=== PATIENT | female | born 1990 | race Caucasian/White ===

== ENCOUNTER → 2023-07-28 10:50 | Outpatient (REF) | payer OTHER, SELFPAY ==
[2023-07-28 15:52] LABS: Mumps Virus IgG Positive; Rubeola (Measles) IgG Positive; Varicella Zoster IgG (VZV) Positive
[2023-07-28 19:20] LABS: Hepatitis B Surface Antibody Negative
[2023-07-28 19:58] LABS: Rubella Positive
[2023-07-30 11:53] LABS: Quantiferon Mitogen minus NIL 8.86 IU/mL; Quantiferon NIL 0.06 IU/mL; Quantiferon Plus TB2 minus NIL 0.03 IU/mL (0.00-0.34); Quantiferon TB Gold Plus Negative (Negative)
== END ==
LOC: REG 10:50
PROVIDERS: ATTENDING PHYSICIAN Nurse Practitioner Family
DX: Z23 Encounter for immunization (principal)
CPT/HCPCS: 36415; 86480; 86706; 86735; 86762; 86765; 86787